=== PATIENT | female | born 1975 ===

== ENCOUNTER 2018-02-05 16:29 | Emergency (ER) | payer OTHER ==
--- OUTSIDE RECORDS SUMMARY | 2018-02-05 17:14 | XMS REPORT ---
:1975 External Reference #:[id number] Author Organization [facility] Address [address], [address] [place] [address] Phone [phone] Care Team Providers Name Role Phone Nancy Corley MD, PHD Care Team Information Clinical Manager Unavailable Nancy Corley MD, PHD Primary Care Physician Unavailable Payers Type Date Identification Numbers Payment Provider Subscriber Commercial Policy Number: [id number] [employer] Eliu Flanagan PayID: [id number] [address] [place] [address] Medicaid Policy Number: [id number] Medicaid Eliu Flanagan PayID: [id number] [address] [place] [address] Problems Date Description Provider Status Onset: 09/18/2017 Exacerbation of mild persistent Nancy Corley MD, PHD Active asthma Onset: 09/18/2017 Obesity Nancy Corley MD, PHD Active Onset: 09/18/2017 Premenopausal menorrhagia Nancy Corley MD, PHD Active Onset: 01/15/2018 Anemia Nancy Corley MD, PHD Active Onset: 01/15/2018 Vitamin D deficiency Nancy Corley MD, PHD Active Family History Date Family Member(s) Problem(s) Comments Mother Alive Mother wears glasses First Son Alive First Son wears glasses Social History Type Date Description Comments Marital Status Single Occupation [employer] ADL's/IADL's Independent with all ADL's ETOH Use Denies alcohol use Smoking Patient has never smoked Recreational Drug Use Never Used Drugs Exercise Type/Frequency Does not exercise STD's No STD History Allergies, Adverse Reactions, Alerts Date Description Reaction Status Severity Comments 01/27/2016 NKDA active Medications Medication Date Status Form Strength Qnty SIG Indications Ordering Provider Singulair 01/15/ Active Tablets 10mg 30tabs 1 tab by J45.31 Jory, 2018 mouth every Nancy, day , PHD Iron Chews 01/15/ Active Chewtabs 15mg 30unit 1 tab by D53.9 Jory, [facility] 2018 s mouth every Nancy, day , PHD Proair HFA 09/18/ Active Aerosol 108(90Base 1units 2 puff inh J45.31 [place], 2017 ) mcg/Act every 4 hours Nancy, wheezing or , PHD difficulty breathing Advair Diskus 09/18/ Active Aerosol 250-50mcg/ 60unit 2 inhalations J45.31 [place], 2017 Dose s lungs every , , PHD No Active 09/18/ Hx Unknown Medications 2017 - 2017 No Active 01/26/ Hx Unknown Medications 2015 - 2015 Latanoprost 01/26/ Hx Solution 0.005% 2.500m 1 drop each H40.013 Victoriano 2016 - l eye at night MD Chris 2017 Vital Signs Date Vital Result Comment 01/15/2018 BP Systolic 122 mmHg BP Diastolic 75 mmHg Body Temperature 97.2 F Heart Rate 64 /min Respiratory Rate 18 /min Height 64 inches 5'4" Weight 219.12 lb BMI (Body Mass Index) 37.6 kg/m2 BSA (Body Surface Area) 2.03 m2 [place] body weight in kilograms 54 O2 % BldC Oximetry 96 % 09/18/2017 BP Systolic 122 mmHg BP Diastolic 77 mmHg Body Temperature 98.4 F Heart Rate 85 /min Respiratory Rate 18 /min Height 64 inches 5'4" Weight 219.12 lb BMI (Body Mass Index) 37.6 kg/m2 BSA (Body Surface Area) 2.03 m2 [place] body weight in kilograms 54 O2 % BldC Oximetry 95 % Results Test Date Test Result H/L Range Note CBC 12/02/2017 White Blood Count 9.9 K/uL 3.1-10.7 1 Red Blood Count 5.08 M/uL 3.90-5.40 1 Hemoglobin 10.4 gm/dL Low 11.6-15.8 1 Hematocrit 33.8 % Low 36.0-46.1 1 Mean Cell Volume 66.5 fl Low 80.9-99.0 1 Mean Corpuscular HGB 20.5 pg Low 25.9-32.7 1 Mean Corpuscular HGB Conc 30.8 g/dL 30.8-34.3 1 Platelet Count 397 K/uL High 155-360 1 Red Cell Distri Width %CV 18.7 % High 11.7-14.4 1 Mean Platelet Volume 10.3 fL 8.9-12.4 1 Laboratory test finding 12/02/2017 Path Review: <pending> 1 HCG,Serum (Qualitative) NEGATIVE (Negative) 1, 2 Type And Screen 12/02/2017 Patient Blood Type O POS 1 Antibody Screen Negative Negative 1 CBS W/Automated Diff 09/18/2017 White Blood Count 8.5 K/uL 3.1-10.7 3 Red Blood Count 5.15 M/uL 3.90-5.40 3 Hemoglobin 10.6 gm/dL Low 11.6-15.8 3 Hematocrit 34.5 % Low 36.0-46.1 3 Mean Cell Volume 67.0 fl Low 80.9-99.0 3 Mean Corpuscular HGB 20.6 pg Low 25.9-32.7 3 Mean Corpuscular HGB Conc 30.7 g/dL Low 30.8-34.3 3 Platelet Count 426 K/uL High 155-360 3 Red Cell Distri Width SD 44.3 fl 3-47 3 Red Cell Distri Width %CV 19.2 % High 11.7-14.4 3 Mean Platelet Volume 10.3 fL 8.9-12.4 3 Neut% 62.8 % 40.4-72.8 3 Lymph % 25.9 % 20.0-42.0 3 [place] % 7.6 % 4.3-13.2 3 Eo% 3.3 % 0.0-6.6 3 Bas% 0.4 % 0.0-1.1 3 Neut# 5.31 K/uL 1.8-7.0 3 Lymph # 2.19 K/uL 1.0-4.0 3 [place]owell # 0.64 K/uL 0.3-0.9 3 Eos # 0.28 K/uL 0.0-0.5 3 Baso # 0.03 K/uL 0.0-0.1 3 Comprehensive Metabolic Panel 09/18/2017 Glucose 89 mg/dL 74-106 3 BUN 7 mg/dL 7-18 3 Creatinine 0.8 mg/dL 0.6-1.3 3 Glom Filtration Rate, Estimate >60 mL/min >60 3 If >60 mL/min >60 3, 4 BUN/Creat 8.7 ratio 3 Sodium 141 mmol/L 136-145 3 Potassium 3.9 mmol/L 3.5-5.1 3 Chloride 108 mmol/L High 98-107 3 Carbon Dioxide 25 mmol/L 21-32 3 Anion Gap 8 mEq/L 8-16 3 Calcium 8.4 mg/dL Low 8.5-10.1 3 Total Protein 7.3 g/dL 6.4-8.2 3 Albumin 3.6 g/dL 3.4-5.0 3 Globulin 3.7 g/dL 1.9-4.3 3 Alb/Glob 1.0 ratio 3 Bilirubin,Total 0.6 mg/dL 0.2-1.0 3 Sgot/Ast 11 U/L Low 15-37 3, 5 SGPT/Alt 18 U/L 12-78 3 Alkaline Phosphatase 101 U/L 45-117 3 Glycohemoglobin A1c 09/18/2017 Glycohemoglobin (A1c) 5.6 % 4.2-6.3 3, 6 eAG 114 mg/dL 3 LDL Cholesterol Profile 09/18/2017 Cholesterol 190 mg/dL <200 3, 7 Triglycerides 128 mg/dL <150 3, 8 HDL Cholesterol 41 mg/dL >40 3, 9 LDL-Cholesterol 123 mg/dL < 100 3, 10 Laboratory test finding 09/18/2017 Thyroid Stim Hormone 3.92 uIU/mL 0.30- 4.20 3 Vitamin D,25-Hydroxy 9.9 ng/mL Low 30.0-100.0 3, 11 Dehydroepiandrosterone Sulfate 112.1 g/dL 57.3-279.2 3, 12 Free T4 1.02 ng/dL 0.76-1.46 3 Testosterone, Women/Child 13 ng/dL . 3, 13 Slide Review 09/18/2017 Slide Review DIFF ORDERED 3 Path Review: 09/18/2017 Path Review: INDICATED,SLIDE <SEE 3, 14 NOTE> Differential-WBC 09/18/2017 Total Cells Counted 100 #CELLS 3 Confirm Neutrophils% 55 % 33-73 3 Lymph% 41 % 20-42 3 Monocyte% 1 % 0-10 3 Eosinophil% 3 % 0-5 3 Platelet Estimate SLIGHT INCREASE 3 Microcytosis 1+ 3 1 CONSULT 11/28/17 2 Method: Quidel QuickVue One-Step Immunoassay 3 N92.4,E66.9,Z13.1,Z13.228,Z13.220 4 Note: Persistent reduction for 3 months or more in an eGFR <60 mL/min/1.73 m2 defines CKD. Patients with eGFR values >/=60 mL/min/1.73 m2 may also have CKD if evidence of persistent proteinuria is present. The original MDRD equation for estimated GFR is not valid for patients less than 18 years of age. Additional information may be found at www.kdoqi.org. 5 Values below the stated reference ranges of AST and ALT can be seen in normal populations. Clinical correlation is suggested. 6 Elevated levels of HbA1c suggest the need for more aggressive treatment of glycemia. The [place] [employer] recommends that a primary goal of therapy should be a HbA1c of <7% and that physicians should re-evaluate the treatment regimen in patients with HbA1c values consistently >8%. 7 Reference Guidelines*: Desirable: ........... < 200 mg/dL Borderline High: ..... 200-239 mg/dL High: ................ >=240 mg/dL * The National Cholesterol Education Program (NCEP) 8 Reference Guidelines*: Normal: ............. < 150 mg/dL Borderline High: .... 150-199 mg/dL High: ............... 200-499 mg/dL Very High: .......... > 500 mg/dL * Source: National Cholesterol Education Program (NCEP) 9 Reference Guidelines*: Low HDL: ..... < 40 mg/dL Normal: ..... 40-60 mg/dL Desirable: ... > 60 mg/dL *The National Cholesterol Education Program(NCEP) 10 Reference Guidelines*: Optimal:........... <100 mg/dL Near Optimal....... 100-129 mg/dL Borderline High.... 130-159 mg/dL High............... 160-189 mg/dL Very High.......... >=190 mg/dL * Source: National Cholesterol Education Program (NCEP) 11 Vitamin D deficiency has been defined by the [place] of [employer] and an Endocrine Society practice guideline as a level of serum 25-OH vitamin D less than 20 ng/mL (1,2). The Endocrine Society went on to further define vitamin D insufficiency as a level between 21 and 29 ng/mL (2). 1. IOM ([place] of [employer]). 2010. Dietary reference intakes for calcium and D. [place]: The National Academies Press. 2. Yordy MF, Melissa HORNE, Amy REAL, et al. Evaluation, treatment, and prevention of vitamin D deficiency: an Endocrine Society clinical practice guideline. JCEM. 2010; 96(7):1911-30. Performed at: RN - [facility] [address] [id number] Monitoring And Evaluation Advisor: Yari Easton MD, Phone: [phone] Performed at: ES - [facility] Endocrinology [address] [place] [id number] Monitoring And Evaluation Advisor: Donell Yuen MD, Phone: [phone] Performed at: RN - [facility] [address] [id number] Monitoring And Evaluation Advisor: Yari Easton MD, Phone: [phone] Reference Range: Adult Females Premenopausal 10 - 55 Postmenopausal 7 - 40 14 INDICATED,SLIDE SENT Hematology Consultation Final Report Case# [id number] Final Diagnosis Review of peripheral blood smear confirms the hemograms findings. There is mild anemia with moderate microcytosis, anisocytosis, and hypochromia. No leptocytes ("pencil" cells) or target cells are present. RBC count is high-normal. Mild thromobocytosis is also present. These findings are consistent with iron deficiency anemia. Serum iron studies and work-up for the cause of iron deficiency are recommended. S 09/19/17 Gross Description Peripheral blood smear Clinical Data Microcytic anemia Arcelia Macias MD Reported 09/19/2017 at 8:55PM, Report electronically signed Performed at: [facility] [id number] [place] [address] Procedures Date CPT Code Description Status 03/02/2016 07324 Scanning Computerized Ophthalmic Diagnostic Imaging, Completed Posterior 03/02/2016 70136 Visual Field Exam Extended, Unilateral Or Bilateral Completed 03/02/2016 49397 Eye Exam Est Patient Comprehensive Completed 01/27/2016 05093 Fundus Photography W/Interpretation & Report Completed 01/27/2016 17490 Gonioscopy Completed 01/27/2016 36676 Eye Exam New Patient Comprehensive Completed 01/27/2016 29437 Ophthalmic Ultrasound, Corneal Pachymetry, Completed Unilateral/Bilateral Encounters Type Date Location Provider CPT E/M Dx Office Visit 09/18/2017 10:15a [place], [address] J45.31 [facility] PHD N92.4 E66.9 Plan of Care 01/15/2018 - Nancy Corley MD, PHDJ45.31 Mild persistent asthma with (acute) exacerbationNew Medication:Singulair 10 mgD53.9 Nutritional anemia, unspecifiedNew Medication:Iron Chews Pediatric 15 mgFollow up:Replace iron daily for a month or two to correct your anemia. Take with an orange.E66.9 Obesity, [id number] Vitamin D deficiency, unspecifiedFollow up:Continue your vitamin D supplement every day - we'll recheck Level in the spring - AugustAllFollow up:Schedule Mammogram today. Discussed PCOS and hormone levels affecting metabolism today. Continue toexercise daily and eat healthy.
[2018-02-05 18:08] VITALS: BP 118/73
--- NOTE | 2018-02-05 18:36 | UC ---
Ear Complaint HPI - HPI Summary HPI Summary: 44-year-old female with a 2 day history of left ear pain and decreased hearing. She denies any URI symptoms. Not had trouble with her ears in the past. - History of Current Complaint Chief Complaint: UCEar Stated Complaint: LEFT EAR PAIN Time Seen by Provider: 02/05/18 18:20 Hx Obtained From: Patient Hx Last Menstrual Period: 01/27/18 Onset/Duration: Gradual Onset, Lasting Days Severity Initially: Moderate Severity Currently: Moderate Pain Intensity: 6 Pain Scale Used: 0-10 Numeric Aggravating Factors: Nothing Alleviating Factors: Nothing Associated Signs/Symptoms: Positive: Hearing Loss - Allergies/Home Medications Allergies/Adverse Reactions: Allergies Allergy/AdvReac Type Severity Reaction Status Date / Time No Known Allergies Allergy Verified 02/05/18 18:02 Home Medications: Home Medications Fluticasone-Salmeterol 250-50* [Advair Diskus 250-50*] 1 puff INH BID 02/05/18 [ History Confirmed 02/05/18] Montelukast Sodium TAB* [Singulair TAB*] 10 mg PO DAILY 02/05/18 [History Confirmed 02/05/18] PMH/Surg Hx/FS Hx/Imm Hx Previously Healthy: Yes Respiratory History: Asthma - Surgical History Surgical History: None - Family History Known Family History: Positive: Hypertension - Social History Alcohol Use: None Substance Use Type: None Smoking Status (MU): Never Smoked Tobacco Review of Systems Constitutional: Negative Skin: Negative Eyes: Negative ENT: Ear Ache Respiratory: Negative Cardiovascular: Negative Gastrointestinal: Negative Genitourinary: Negative Motor: Negative Neurovascular: Negative Musculoskeletal: Negative Neurological: Negative Psychological: Negative All Other Systems Reviewed And Are Negative: Yes Physical Exam Triage Information Reviewed: Yes Appearance: Well-Appearing, No Pain Distress, Well-Nourished Vital Signs: Initial Vital Signs Temp 97.3 F 02/05/18 18:03 Pulse 70 02/05/18 18:03 Resp 18 02/05/18 18:03 BP 118/73 02/05/18 18:03 Pulse Ox 100 02/05/18 18:03 Vital Signs Reviewed: Yes Eyes: Positive: Conjunctiva Clear ENT: Positive: TMs normal, Other - White FB left ear. Negative: Hearing grossly normal, Nasal congestion, Nasal drainage Neck: Positive: Supple, Nontender Respiratory: Positive: Lungs clear, Normal breath sounds, No respiratory distress, No accessory muscle use Cardiovascular: Positive: RRR, No Murmur Musculoskeletal: Positive: ROM Intact, No Edema Neurological: Positive: Alert Psychological Exam: Normal Skin Exam: Normal Re-Evaluation - Re-Evaluation First Eval Change: Improved - RN flushed left ear/cotton from qtip removed/symptoms resolved Ear Complaint Course/Dx - Differential Dx/Diagnosis Provider Diagnoses: foreign body removal left ear Discharge - Sign-Out/Discharge Documenting (check all that apply): Patient Departure All imaging exams completed and their final reports reviewed: No Studies - Discharge Plan Condition: Stable Disposition: HOME Patient Education Materials: Ear Foreign Body (ED) Referrals: Nancy Corley MD [Primary Care Provider] - If Needed - Billing Disposition and Condition Condition: STABLE Disposition: Home
== END 2018-02-05 18:42 | disposition home or self-care (01) ==
LOC: UCCORT 16:29
DX: T16.2XXA Foreign body in left ear, initial encounter (principal); J45.909 Unspecified asthma, uncomplicated; X58.XXXA Exposure to other specified factors, initial encounter; Y92.9 Unspecified place or not applicable
CPT/HCPCS: 99212; G0463